=== PATIENT | male | born 1960 | race Caucasian/White ===

== ENCOUNTER 2018-03-27 22:05 | Observation (INO) | payer OTHER ==
[~2018-03-27] VITALS: Ht 175.3 cm; Wt 106.6 kg
[2018-03-27 22:24] VITALS: Ht 175.3 cm; Wt 106.6 kg
[2018-03-27 22:57] LABS: BASOPHIL % 0.2 % (0-2); PLATELET COUNT 230 x10^3mcL (130-400); RED CELL DISTRIBUTION WIDTH 13.1 % (11.5-14.5)
[2018-03-27 23:06] LABS: CARBON DIOXIDE 19.4 mmol/L (21-32); CHLORIDE SERUM 102 mmol/L (98-107); CREATININE SERUM 1.1 mg/dL (0.7-1.3); GFR1 > 60 mL/min; GLUCOSE SERUM 141 mg/dL (74-106); POTASSIUM SERUM 3.6 mmol/L (3.5-5.1); SODIUM SERUM 136 mmol/L (136-145)
[2018-03-27 23:11] LABS: ALBUMIN 4.1 g/dL (3.4-5.0); ALKALINE PHOSPHATASE 92 U/L (46-116); ALT/SGPT 21 U/L (16-63); AST/SGOT 15 U/L (15-37); BILIRUBIN TOTAL 0.8 mg/dL (0.20-1.00); LIPASE 116 IU/L (73-393); TOTAL PROTEIN, SERUM 7.5 g/dL (6.4-8.2)
[2018-03-27 23:59] LABS: AMPHETAMINE QUAL UR NONE DETECTED (NEG <=1000)
[2018-03-28] VITALS (7 sets, daily range): BP systolic 100–147; BP diastolic 61–103
[2018-03-28 01:43] LABS: MAGNESIUM 1.8 mg/dL (1.8-2.4)
[2018-03-28 01:52] LABS: CHOLESTEROL/HDL RATIO 2.4
[2018-03-28 02:17] LABS: microscopic required? NO
[2018-03-28 02:31] LABS: urine erythrocyte NEGATIVE (NEGATIVE)
[2018-03-28 06:49] LABS: BASOPHIL % 0.2 % (0-2); PLATELET COUNT 201 x10^3mcL (130-400); RED CELL DISTRIBUTION WIDTH 13.5 % (11.5-14.5)
[2018-03-28 07:05] LABS: CALCIUM 8.6 mg/dL (8.5-10.1); CARBON DIOXIDE 25.6 mmol/L (21-32); CHLORIDE SERUM 101 mmol/L (98-107); GFR1 > 60 mL/min; GLUCOSE SERUM 121 mg/dL (74-106); POTASSIUM SERUM 4.2 mmol/L (3.5-5.1); SODIUM SERUM 137 mmol/L (136-145)
[2018-03-29] VITALS (7 sets, daily range): BP systolic 104–123; BP diastolic 62–78
[2018-03-30 05:32] VITALS: BP 107/68
[2018-03-30 09:52] VITALS: BP 111/69
[2018-03-30 12:51] VITALS: BP 140/81
[2018-03-30] MEDS ORDERED: NOR5 PO (13:39)
[2018-03-30] MEDS ORDERED: ASPIR 8181 MG PO (13:39)
[2018-03-30] MEDS ORDERED: LIPI20 PO (13:39)
[2018-03-30] MEDS ORDERED: DULERA1 AR3 INH (13:40)
[2018-03-30] MEDS ORDERED: HYDROCHLOROTHIA25 MG PO (13:40)
[2018-03-30] MEDS ORDERED: NITROGLYCERIN0.4 MG SL (13:41)
[2018-03-30] MEDS ORDERED: METFORMIN HCL500 MG PO (13:41)
[2018-03-30] MEDS ORDERED: LISINOPRIL20 MG PO (13:41)
[2018-03-30] MEDS ORDERED: APAP500 MG PO (13:42)
[2018-03-30] MEDS ORDERED: SPIRIVA18 MC1 INH (13:42)
[2018-03-30 13:43] VITALS: BP 140/81
[2018-03-30] MEDS ORDERED: XOPENEX1.25 MG/3 INH (13:43)
[2018-03-30] MEDS ORDERED: BUSPIRONE HCL30 MG PO (13:43)
== END 2018-03-30 17:08 | disposition other institution (70) | DRG 302 ==
LOC: ED 22:05 → DU 03-28 00:07
PROVIDERS: Emergency Medicine; Internal Medicine
DX: I25.119 Atherosclerotic heart disease of native coronary artery with unspecified angina pectoris (principal); J18.9 Pneumonia, unspecified organism; J44.0 Chronic obstructive pulmonary disease with (acute) lower respiratory infection; J44.1 Chronic obstructive pulmonary disease with (acute) exacerbation; I25.89 Other forms of chronic ischemic heart disease; M19.90 Unspecified osteoarthritis, unspecified site; I10 Essential (primary) hypertension; E11.9 Type 2 diabetes mellitus without complications
CPT/HCPCS: 36600; 82962; 85378; A9500; C1758; G0378; J1644; J1956; J2270; J2405; J2550; J2785; J7620; J7626